=== PATIENT | male | born 1985 | race Hispanic/Latino ===

== ENCOUNTER 2019-02-23 08:21 | Emergency (ER) | payer OTHER ==
[2019-02-23] MEDS ORDERED: IBUPROFEN 600 MG TABLET ONE (08:54)
[2019-02-23] MEDS ORDERED: DIPHENHYDRAMINE HCL 25 MG CAPSULE ONE (08:54)
== END 2019-02-23 09:13 | disposition home or self-care (01) ==
LOC: EDH 08:21
DX: R22.0 Localized swelling, mass and lump, head (principal); L29.9 Pruritus, unspecified; E78.00 Pure hypercholesterolemia, unspecified
CPT/HCPCS: 99283; Q0163

== ENCOUNTER 2019-05-27 06:56 | Emergency (ER) | payer SELFPAY ==
[2019-05-27] MEDS ORDERED: KETOROLAC TROMETHAMINE 30MG/ML ONE (07:58)
[2019-05-27] MEDS ORDERED: SODIUM CHLORIDE 0.9% 1000ML 1,000 ML IV ONE (07:58)
[2019-05-27] MEDS ORDERED: ONDANSETRON HCL 4 MG/2 ML VIAL ONE (07:58)
[2019-05-27 08:20] LABS: BASOPHILS % (AUTO) 0.3 % (0.0-5.0); EOSINOPHILS % (AUTO) 0.7 % (0.0-8.0); HEMATOCRIT 45.2 % (42-54); LYMPHOCYTES % (AUTO) 12.4 % (21.0-51.0); MEAN CORPUSCULAR HEMOGLOBIN 32.3 pg (27.0-33.0); MEAN CORPUSCULAR HGB CONC 37.4 g/dL (32.0-36.0); MEAN CORPUSCULAR VOLUME 86.4 fL (79-99); MONOCYTES % (AUTO) 5.9 % (3.0-13.0); NEUTROPHILS % (AUTO) 80.3 % (40.0-77.0); PLATELET COUNT (AUTO) 267 K/uL (130-400); RED BLOOD CELL COUNT(AUTO) 5.23 MIL/uL (4.50-6.20); WHITE BLOOD COUNT (AUTO) 11.3 K/uL (4.8-10.8)
[2019-05-27 08:30] LABS: AMPHET/METH SCREEN,URINE NEGATIVE (NEGATIVE); BARBITURATE SCREEN, URINE NEGATIVE (NEGATIVE); BENZODIAZEPINES SCREEN,URINE NEGATIVE (NEGATIVE); CANNABINOID SCREEN,URINE POSITIVE (NEGATIVE); COCAINE SCREEN,URINE NEGATIVE (NEGATIVE); OPIATE SCREEN,URINE NEGATIVE (NEGATIVE); PHENCYCLIDINE SCREEN,URINE NEGATIVE (NEGATIVE)
[2019-05-27 08:33] LABS: APPEARANCE,URINE Clear (CLEAR); BILIRUBIN,URINE Negative (NEGATIVE); COLOR,URINE Yellow (YELLOW); GLUCOSE, URINE (UA) Negative (NEGATIVE); KETONES,URINE Negative (NEGATIVE); LEUKOCYTE ESTERASE ,URINE Negative (NEGATIVE); NITRATE,URINE Negative (NEGATIVE); OCCULT BLOOD,URINE Small (NEGATIVE); PROTEIN,URINE Trace mg/dL (NEGATIVE); UROBILINOGEN,URINE 0.2 mg/dL (0.2-1.0)
[2019-05-27 08:54] LABS: BACTERIA,URINE None Seen /HPF (None Seen); RBC,URINE None Seen /HPF (0-1); SQUAMOUS EPITHELIAL CELL,UR 0-2 /HPF (0-2); WBC,URINE None Seen /HPF (0-1)
[2019-05-27 09:39] LABS: ALBUMIN 3.7 g/dL (3.5-5.0); BILIRUBIN,TOTAL 0.9 mg/dL (0.2-1.0); CARBON DIOXIDE 25 mmol/L (21-32); CHLORIDE 98 mmol/L (101-111); GLUCOSE,RANDOM 147 mg/dL (70-105); LIPASE 99 U/L (114-286); POTASSIUM 4.7 mmol/L (3.5-5.1); SODIUM SERUM 133 mmol/L (136-145); UREA NITROGEN, BLOOD 18 mg/dL (7-18)
[2019-05-27 09:54] LABS: ASPARTATE AMINOTRANSFERASE 70 U/L (10-37); BILIRUBIN,DIRECT < 0.1 mg/dL (0.0-0.3)
[2019-05-27 09:55] LABS: ALANINE AMINOTRANSFERASE 130 U/L (12-78); TOTAL PROTEIN, SERUM 7.3 g/dL (6.0-8.3)
[2019-05-27 09:56] LABS: CREATININE 0.7 mg/dL (0.5-1.5); GLOMERULAR FILTR. RATE CALC 138 mL/min (>60)
== END 2019-05-27 10:58 | disposition home or self-care (01) ==
LOC: EDH 06:56
DX: K29.00 Acute gastritis without bleeding (principal); E78.00 Pure hypercholesterolemia, unspecified
CPT/HCPCS: 36415; 76705; 80048; 80076; 80305; 81001; 83690; 85025; 96361; 96374; 96375; 99284; J1885; J2405; J7030